=== PATIENT | female | born 1925 | race Caucasian/White ===

== ENCOUNTER → 2017-02-06 | Outpatient (CLI) | payer MEDICARE ==
[~2017-02-06] MED LIST: ALDACTONE 25MG25 MG PO; AMLO5TAB PO; BYSTOLIC10 MG PO; CARDIZEM CD180 MG PO; DAILY VITE1 TA2 PO; FERROUS SULFAT140 MG PO; FUROSEMIDE40 MG PO; GABAPENTIN300 MG PO; HYDROCHLOROTH12.5 M1 PO; ISOSORBIDE MONO30 MG PO; ISOSORBIDE MONO60 MG PO; JANUMET 500 MG-1 TAB PO; LANOXIN PO; LEVAQUIN500 MG PO; LIPITOR20 MG PO; METFORMIN500 MG PO; RESTASIS0.05% OP; RYTHMOL SR325 MG PO; SYNTHROID 0.10.15 MG PO
[2017-02-06 15:21] LABS: HEMOGLOBIN 10.3 g/dL (12.2-16.2); LYMPH # 1.6 K/mm3 (0.7-4.5); LYMPH % 24.5 % (10-50.0)
[2017-02-06 17:42] LABS: BUN 34 mg/dL (7-18)
[2017-02-06 18:18] LABS: GFR (ESTIMATED) 19 ML/MIN (59-)
== END ==
LOC: LAB 15:05
PROVIDERS: Internal Medicine
DX: I48.0 Paroxysmal atrial fibrillation (principal); E03.9 Hypothyroidism, unspecified; Z79.899 Other long term (current) drug therapy